=== PATIENT | female | born 1975 | race Hispanic/Latino ===

== ENCOUNTER 2020-05-25 08:11 | Emergency (ER) | payer SELFPAY ==
[~2020-05-25] VITALS: Ht 160 cm; Wt 95.3 kg
[2020-05-25] MEDS ORDERED: CEFTRIAXONE SOD 250 MG VIAL IM STA (08:56)
[2020-05-25] MEDS ORDERED: KETOROLAC TROMETHAMINE 60 MG/2 ML VIAL IM ONE (09:00)
[2020-05-25] MEDS ORDERED: AZITHROMYCIN 250 MG TAB PO ONE (09:00)
[2020-05-25] MEDS ORDERED: AZITHROMYCIN 250 MG TAB ONE (09:14)
[2020-05-25] MEDS ORDERED: KETOROLAC TROMETHAMINE 60 MG/2 ML VIAL ONE (09:14)
[2020-05-25] MEDS ORDERED: CEFTRIAXONE SOD 500 MG VIAL ONE (09:15)
== END 2020-05-25 09:30 | disposition home or self-care (01) ==
LOC: FSED 08:24
DX: N76.0 Acute vaginitis (principal); E11.9 Type 2 diabetes mellitus without complications
CPT/HCPCS: 99284; J0696; J1885